=== PATIENT | male | born 1945 | race Caucasian/White ===

== ENCOUNTER 2017-06-01 02:43 | Emergency (ER) | payer OTHER ==
[~2017-06-01] VITALS: Ht 167.6 cm; Wt 64.4 kg
--- NOTE | 2017-06-01 02:54 | ER Report ---
History and Physical Time Seen By MD: 02:53 Hx. of Stated Complaint: patients nose has been bleeding off and on for about 2 hours HPI/ROS CHIEF COMPLAINT: Nosebleed HISTORY OF PRESENT ILLNESS: 71-year-old male presents ambulatory to the ER with nose bleeding for 2 hours. It's unstoppable. Patient's on Plavix and aspirin 81 mg. He's been using Flonase for recent cold symptoms. He is also taking Zyrtec which we drying his mucous membranes out. Patient has no previous history of nosebleeds. Allergies: Coded Allergies: phenytoin (Verified Allergy, Intermediate, 06/01/17) Home Meds Reported Medications Albuterol Sulfate 90 Mcg/Act (PROAIR HFA 90 MCG/ACT) 8.5 Gm Hfa.aer.ad, 1-2 PUFF IH 3-4XD, INHALER 06/01/17 Multivitamin (MULTIVITAMINS) 1 Each Capsule, 1 EACH PO, CAPSULE 06/01/17 Fish Oil/Dha/Epa (FISH OIL 1,200 MG FISH OIL) 1 Each Capsule, 1 EACH PO, CAPSULE 06/01/17 Ascorbic Acid (VITAMIN C) 500 Mg Tablet, 500 MG PO, TAB 06/01/17 Guaifenesin (MUCINEX) 1,200 Mg Tbmp.12hr, 1200 MG PO 06/01/17 Cetirizine Hcl (ZYRTEC) 10 Mg Capsule, 10 MG PO QDAY, CAPSULE 06/01/17 Cyanocobalamin (Vitamin B-12) (B-12) 1,000 Mcg Tablet 06/01/17 Esomeprazole Magnesium (NEXIUM) 40 Mg Capsule.dr, 22.3 CAP PO QDAY, CAP 06/01/17 Aspirin (ASPIR 81) 81 Mg Tablet.dr, 81 MG PO QDAY, TAB 06/01/17 Iron Polysaccharides Complex (POLYSACCHARIDE IRON 150) 150 Mg Capsule, 65 MG PO , CAPSULE 06/01/17 Tramadol Hcl (TRAMADOL HCL) 50 Mg Tablet, 50-100 MG PO Q4-6H, TAB 06/01/17 Lisinopril (LISINOPRIL) 40 Mg Tablet, 40 MG PO QDAY, TAB 06/01/17 Clopidogrel Bisulfate (CLOPIDOGREL) 75 Mg Tablet, 1 TAB PO QDAY, TAB 06/01/17 Pregabalin (LYRICA) 150 Mg Capsule, 150 MG PO BID, CAPSULE 06/01/17 Atorvastatin Calcium (LIPITOR) 40 Mg Tablet, 80 TAB PO QDAY, TAB 06/01/17 Metoprolol Tartrate (METOPROLOL TARTRATE) 25 Mg Tablet, 1 TAB PO BID, TAB 06/01/17 Metformin Hcl (METFORMIN HCL) 1,000 Mg Tablet, 1 TAB PO BID, TAB 06/01/17 Budesonide/Formoterol Fumarate (SYMBICORT 160-4.5 MCG INHALER) 10.2 Gm Inh, 10.2 GM INH, INH 06/01/17 Past Medical/Surgical History Past medical history: Asthma, hypertension, COPD, CVA, type II diabetes, chronic pain syndrome Reviewed Nurses Notes: Yes Old Medical Records Reviewed: Yes Constitutional Vital Sign - Last 24 Hours 06/01/17 06/01/17 06/01/17 06/01/17 02:46 02:47 03:13 03:36 Temp 97.5 Pulse 59 60 Resp 18 B/P (MAP) 190/77 (114) 190/77 167/65 (99) Pulse Ox 95 96 O2 Delivery Room Air 06/01/17 03:43 Pulse 53 Pulse Ox 95 Physical Exam General Appearance: The patient is alert, has no immediate need for airway protection and no current signs of toxicity., Blood pressure elevated HEENT: Pupils equal and round no injection. TMs normal, nasal passages show steve bleeding from the Kiesselbach's area in the left anterior medial area Respiratory: Chest is non tender, lungs are clear to auscultation. Cardiac: regular rate and rhythm Gastrointestinal: Abdomen is soft and non tender, no masses, bowel sounds normal. Musculoskeletal: Neck: Neck is supple and non tender. No JVD Extremities have full range of motion and are non tender. Skin: No rashes or lesions. DIFFERENTIAL DIAGNOSIS: After history and physical exam differential diagnosis was considered for nosebleed, hypertension, anticoagulation, URI, allergies, sinusitis Medical Decision Making ED Course/Re-evaluation ED Course Patient was admitted to an examination room. H&P was done. The differential diagnoses was considered. Patient was slow oozing from his left nares. On examination there is a bleeding area just posterior to Kiesselbach's area. His nasal passage was packed with a cotton ball saturated lidocaine 1% with epinephrine. The packing was removed, sober nitrate cautery was attempted to the area. Unfortunately, the bleeding continued. A rapid Rhino 4.5 cm was inserted in the left nares. It was infiltrated with lidocaine 1% with epinephrine. Patient was noted to have good hemostasis. On reevaluation and 15 minutes. He was discharged home. His blood pressure was rechecked and was notably down. Patient advised to follow-up with primary care to have the packing removed in 3 days. Decision to Disposition Date: Jun 01, 2017 Decision to Disposition Time: 03:40 Depart Departure Latest Vital Signs Vital Signs Date Time Temp Pulse Resp B/P (MAP) Pulse Ox O2 Delivery O2 Flow Rate FiO2 06/01/17 03:43 53 95 06/01/17 03:36 167/65 (99) 06/01/17 02:47 97.5 18 Room Air Impression: Primary Impression: Epistaxis Additional Impressions: Hypertension Cerebral arteriosclerosis with history of previous cerebrovascular accident Chronic anticoagulation Condition: Improved Disposition: HOME OR SELF-CARE Patient Instructions: Nosebleed (ED) Additional Instructions: Return to your primary care physician in 3 days to have the packing removed or you may come to the emergency department Problem Qualifiers Additional Impressions: Hypertension Hypertension type: essential hypertension Qualified Codes: I10 - Essential ( primary) hypertension GEO BEASLEY DO Jun 01, 2017 02:53
[2017-06-01] MEDS ORDERED: ENT KIT ONE (03:05)
[2017-06-01] MEDS ORDERED: IRON150C19 PO (03:23)
[2017-06-01] MEDS ORDERED: CLOP75TA PO (03:23)
[2017-06-01] MEDS ORDERED: METF-420 PO (03:23)
[2017-06-01] MEDS ORDERED: BUDE10.2 INH (03:23)
[2017-06-01] MEDS ORDERED: ESOM40CA42 PO (03:23)
[2017-06-01] MEDS ORDERED: CYAN100017 (03:23)
[2017-06-01] MEDS ORDERED: ALBU8.5H IH (03:23)
[2017-06-01] MEDS ORDERED: ASPI-1471 PO (03:23)
[2017-06-01] MEDS ORDERED: ASCO-182 PO (03:23)
[2017-06-01] MEDS ORDERED: LISI-374 PO (03:23)
[2017-06-01] MEDS ORDERED: GUAI1200 PO (03:23)
[2017-06-01] MEDS ORDERED: FISH1CAP15 PO (03:23)
[2017-06-01] MEDS ORDERED: ATOR40TA24 PO (03:23)
[2017-06-01] MEDS ORDERED: METO25TA93 PO (03:23)
[2017-06-01] MEDS ORDERED: TRAM-420 PO (03:23)
[2017-06-01] MEDS ORDERED: PREG150C33 PO (03:23)
[2017-06-01] MEDS ORDERED: MULT1CAP59 PO (03:23)
[2017-06-01] MEDS ORDERED: CETI10CA8 PO (03:23)
[2017-06-01 03:36] VITALS: BP 167/65
== END 2017-06-01 04:02 | disposition home or self-care (01) ==
LOC: ER 02:48
DX: R04.0 Epistaxis (principal); I10 Essential (primary) hypertension; I67.2 Cerebral atherosclerosis; Z86.73 Personal history of transient ischemic attack (TIA), and cerebral infarction without residual deficits; Z79.01 Long term (current) use of anticoagulants
CPT/HCPCS: 99282

== ENCOUNTER 2017-06-01 07:16 | Emergency (ER) | payer OTHER ==
[~2017-06-01] VITALS: Ht 167.6 cm; Wt 64.4 kg
[~2017-06-01 07:16] MED LIST: ALBU8.5H IH; ASCO-182 PO; ASPI-1471 PO; ATOR40TA24 PO; BUDE10.2 INH; CETI10CA8 PO; CLOP75TA PO; CYAN100017; ESOM40CA42 PO; FISH1CAP15 PO; GUAI1200 PO; IRON150C19 PO; LISI-374 PO; METF-420 PO; METO25TA93 PO; MULT1CAP59 PO; PREG150C33 PO; TRAM-420 PO
[2017-06-01 07:30] VITALS: BP 173/70
[2017-06-01] MEDS ORDERED: ENT KIT ONE (07:31)
--- NOTE | 2017-06-01 07:42 | ER Report ---
History and Physical Time Seen By MD: 07:30 Hx. of Stated Complaint: pt reports nose is still bleeding from last night, rhino rocket in L nare HPI/ROS CHIEF COMPLAINT: Nosebleed HISTORY OF PRESENT ILLNESS: 71-year-old male currently on Plavix and aspirin returns emergency Department hour and half after his discharge after having a nasal packing placed was still some bleeding patient returns no additional complaints noted REVIEW OF SYSTEMS: Respiratory: No cough, no dyspnea. Cardiovascular: No chest pain, no palpitations. Gastrointestinal: No vomiting, no abdominal pain. Musculoskeletal: No back pain. Remainder of the 14 system rev: Yes Allergies: Coded Allergies: phenytoin (Verified Allergy, Intermediate, 06/01/17) Home Meds Reported Medications Albuterol Sulfate 90 Mcg/Act (PROAIR HFA 90 MCG/ACT) 8.5 Gm Hfa.aer.ad, 1-2 PUFF IH 3-4XD, INHALER 06/01/17 Multivitamin (MULTIVITAMINS) 1 Each Capsule, 1 EACH PO, CAPSULE 06/01/17 Fish Oil/Dha/Epa (FISH OIL 1,200 MG FISH OIL) 1 Each Capsule, 1 EACH PO, CAPSULE 06/01/17 Ascorbic Acid (VITAMIN C) 500 Mg Tablet, 500 MG PO, TAB 06/01/17 Guaifenesin (MUCINEX) 1,200 Mg Tbmp.12hr, 1200 MG PO 06/01/17 Cetirizine Hcl (ZYRTEC) 10 Mg Capsule, 10 MG PO QDAY, CAPSULE 06/01/17 Cyanocobalamin (Vitamin B-12) (B-12) 1,000 Mcg Tablet 06/01/17 Esomeprazole Magnesium (NEXIUM) 40 Mg Capsule.dr, 22.3 CAP PO QDAY, CAP 06/01/17 Aspirin (ASPIR 81) 81 Mg Tablet.dr, 81 MG PO QDAY, TAB 06/01/17 Iron Polysaccharides Complex (POLYSACCHARIDE IRON 150) 150 Mg Capsule, 65 MG PO , CAPSULE 06/01/17 Tramadol Hcl (TRAMADOL HCL) 50 Mg Tablet, 50-100 MG PO Q4-6H, TAB 06/01/17 Lisinopril (LISINOPRIL) 40 Mg Tablet, 40 MG PO QDAY, TAB 06/01/17 Clopidogrel Bisulfate (CLOPIDOGREL) 75 Mg Tablet, 1 TAB PO QDAY, TAB 06/01/17 Pregabalin (LYRICA) 150 Mg Capsule, 150 MG PO BID, CAPSULE 06/01/17 Atorvastatin Calcium (LIPITOR) 40 Mg Tablet, 80 TAB PO QDAY, TAB 06/01/17 Metoprolol Tartrate (METOPROLOL TARTRATE) 25 Mg Tablet, 1 TAB PO BID, TAB 06/01/17 Metformin Hcl (METFORMIN HCL) 1,000 Mg Tablet, 1 TAB PO BID, TAB 06/01/17 Budesonide/Formoterol Fumarate (SYMBICORT 160-4.5 MCG INHALER) 10.2 Gm Inh, 10.2 GM INH, INH 06/01/17 Reviewed Nurses Notes: Yes Old Medical Records Reviewed: Yes Hx Substance Use Disorder: No Hx Alcohol Use: No Constitutional Vital Sign - Last 24 Hours 06/01/17 06/01/17 07:23 07:26 Temp 97.4 97.4 Pulse 63 64 Resp 14 B/P (MAP) 163/67 163/67 (99) Pulse Ox 96 93 O2 Delivery Room Air Room Air Physical Exam General appearance: Alert no distress. Respiratory: Chest is non tender, lungs are clear to auscultation. Cardiac: Regular rate and rhythm [ ] Nasal examination patient has obvious bleeding from the naris packing was removed packing was replaced successfully epistaxis resolved DIFFERENTIAL DIAGNOSIS: After history and physical exam differential diagnosis was considered for nosebleed Medical Decision Making ED Course/Re-evaluation ED Course Clinical course medical decision making 71-year-old male on Plavix and aspirin with a nosebleed removed the original packing replaced it with a full sized packing patient has received resolution of the symptoms he is currently on Plavix and aspirin advised to hold both referral to primary care for follow-up and he Decision to Disposition Date: Jun 01, 2017 Decision to Disposition Time: 07:41 Depart Departure Latest Vital Signs Vital Signs Date Time Temp Pulse Resp B/P (MAP) Pulse Ox O2 Delivery O2 Flow Rate FiO2 06/01/17 07:26 97.4 64 163/67 (99) 93 Room Air 06/01/17 07:23 14 Impression: Primary Impression: Epistaxis Condition: Improved Disposition: HOME OR SELF-CARE Referrals: WARREN NI JR, MD 2 Days Patient Instructions: Nosebleed (ED) HUONG BOCANEGRA MD Jun 01, 2017 07:42
[2017-06-01] MEDS ORDERED: PHENYLEPHRINE 0.5% 15 ML BTL ONE (09:06)
== END 2017-06-01 07:53 | disposition home or self-care (01) ==
LOC: ER 07:45
DX: R04.0 Epistaxis (principal)
CPT/HCPCS: 99282

== ENCOUNTER 2017-06-01 17:01 | Emergency (ER) | payer OTHER ==
--- NOTE | 2017-06-01 18:08 | ER Report ---
History and Physical Time Seen By MD: 17:20 Hx. of Stated Complaint: Rhino rocket falling out. HPI/ROS CHIEF COMPLAINT: Nosebleed HISTORY OF PRESENT ILLNESS: 71-year-old male patient presents to emergency room with complaint of nosebleed. Patient states he was seen here last night and again this morning for nosebleed. Patient states that he had a Rhino Rocket placed this morning. Throughout the day the Rhino Rocket has worked its way out. He had it fall out completely and came in for further evaluation. At this time there is no bleeding. He states he feels fine. He denies any nausea, vomiting or diarrhea. He has not had any changes in his medications. Allergies: Coded Allergies: phenytoin (Verified Allergy, Intermediate, 06/01/17) Home Meds Reported Medications Albuterol Sulfate 90 Mcg/Act (PROAIR HFA 90 MCG/ACT) 8.5 Gm Hfa.aer.ad, 1-2 PUFF IH 3-4XD, INHALER 06/01/17 Multivitamin (MULTIVITAMINS) 1 Each Capsule, 1 EACH PO, CAPSULE 06/01/17 Fish Oil/Dha/Epa (FISH OIL 1,200 MG FISH OIL) 1 Each Capsule, 1 EACH PO, CAPSULE 06/01/17 Ascorbic Acid (VITAMIN C) 500 Mg Tablet, 500 MG PO, TAB 06/01/17 Guaifenesin (MUCINEX) 1,200 Mg Tbmp.12hr, 1200 MG PO 06/01/17 Cetirizine Hcl (ZYRTEC) 10 Mg Capsule, 10 MG PO QDAY, CAPSULE 06/01/17 Cyanocobalamin (Vitamin B-12) (B-12) 1,000 Mcg Tablet 06/01/17 Esomeprazole Magnesium (NEXIUM) 40 Mg Capsule.dr, 22.3 CAP PO QDAY, CAP 06/01/17 Aspirin (ASPIR 81) 81 Mg Tablet.dr, 81 MG PO QDAY, TAB 06/01/17 Iron Polysaccharides Complex (POLYSACCHARIDE IRON 150) 150 Mg Capsule, 65 MG PO , CAPSULE 06/01/17 Tramadol Hcl (TRAMADOL HCL) 50 Mg Tablet, 50-100 MG PO Q4-6H, TAB 06/01/17 Lisinopril (LISINOPRIL) 40 Mg Tablet, 40 MG PO QDAY, TAB 06/01/17 Clopidogrel Bisulfate (CLOPIDOGREL) 75 Mg Tablet, 1 TAB PO QDAY, TAB 06/01/17 Pregabalin (LYRICA) 150 Mg Capsule, 150 MG PO BID, CAPSULE 06/01/17 Atorvastatin Calcium (LIPITOR) 40 Mg Tablet, 80 TAB PO QDAY, TAB 06/01/17 Metoprolol Tartrate (METOPROLOL TARTRATE) 25 Mg Tablet, 1 TAB PO BID, TAB 06/01/17 Metformin Hcl (METFORMIN HCL) 1,000 Mg Tablet, 1 TAB PO BID, TAB 06/01/17 Budesonide/Formoterol Fumarate (SYMBICORT 160-4.5 MCG INHALER) 10.2 Gm Inh, 10.2 GM INH, INH 06/01/17 Past Medical/Surgical History Patient has a past medical history of stroke, NC, hypertension, hyperlipidemia, pneumonia, COPD, prostate cancer, fractures, arthritis, type 2 diabetes, skin cancer. Patient has surgical history of open heart surgery, coronary stent, prostate surgery, orthopedic surgery. Reviewed Nurses Notes: Yes Hx Substance Use Disorder: No Hx Alcohol Use: No Constitutional Vital Sign - Last 24 Hours 06/01/17 17:10 Temp 97.9 Pulse 64 Resp 16 B/P (MAP) 157/79 Pulse Ox 93 O2 Delivery Room Air Physical Exam General appearance: Alert no distress. Respiratory: Chest is non tender, lungs are clear to auscultation. Cardiac: Regular rate and rhythm. ENT: There is no bleeding noted at this time. DIFFERENTIAL DIAGNOSIS: After history and physical exam differential diagnosis was considered for epistaxis. Medical Decision Making ED Course/Re-evaluation ED Course Patient was admitted to exam room, history of physical were obtained. Differential diagnoses were considered. On examination patient had no bleeding coming from the nose. I opted to monitor him for 30 minutes and see if there was any bleeding that started. During that time there is no bleeding noted. We will go ahead and discharge patient home. I did give the patient a nasal clamp and encouraged him to get some Afrin. If he develops any bleeding they're to instill 2 sprays of Afrin and apply nasal clamp. Patient and his verbalized understanding and agreement. Decision to Disposition Date: Jun 01, 2017 Decision to Disposition Time: 18:07 Depart Departure Latest Vital Signs Vital Signs Date Time Temp Pulse Resp B/P (MAP) Pulse Ox O2 Delivery O2 Flow Rate FiO2 06/01/17 17:10 97.9 64 16 157/79 93 Room Air Impression: Primary Impression: Epistaxis Condition: Improved Disposition: HOME OR SELF-CARE Patient Instructions: Nosebleed (ED) Additional Instructions: Get plenty of rest. Try the [place] to help moisten the nose. Increase fluid intake. If he starts bleeding use 2 sprays of Afrin and then apply nasal clamp. Follow up with your primary care provider in the next week. Return to the ER if condition worsens. MARILEE POTTER Jun 01, 2017 18:08
[2017-06-01 18:28] VITALS: BP 140/72
== END 2017-06-01 18:30 | disposition home or self-care (01) ==
LOC: ER 17:11
DX: R04.0 Epistaxis (principal)
CPT/HCPCS: 99283; 99284

== ENCOUNTER 2017-07-14 09:55 | Emergency (ER) | payer OTHER ==
[~2017-07-14] VITALS: Ht 167.6 cm; Wt 64.4 kg
--- NOTE | 2017-07-14 10:00 | ER Report ---
History and Physical Time Seen By MD: 10:00 HPI/ROS CHIEF COMPLAINT: Epistaxis HISTORY OF PRESENT ILLNESS: Left naris epistaxis onset last night patient is taking aspirin 2 mg tablets twice a day and Plavix 75 mg daily status post stents 2. No rapid bleed. Controlled with direct pressure home. Also takes medication for blood pressure which he has been compliant with. No bleeding elsewhere. No pain. No other concerns or complaints today. REVIEW OF SYSTEMS: Respiratory: No cough, no dyspnea. Cardiovascular: No chest pain, no palpitations. Gastrointestinal: No vomiting, no abdominal pain. Musculoskeletal: No back pain. Allergies: Coded Allergies: phenytoin (Verified Allergy, Intermediate, 07/14/17) Home Meds Reported Medications Clopidogrel Bisulfate (PLAVIX) 75 Mg Tablet, 1 TAB PO QDAY, TAB 07/14/17 Albuterol Sulfate 90 Mcg/Act (PROAIR HFA 90 MCG/ACT) 8.5 Gm Hfa.aer.ad, 1-2 PUFF IH 3-4XD, INHALER 06/01/17 Multivitamin (MULTIVITAMINS) 1 Each Capsule, 1 EACH PO, CAPSULE 06/01/17 Fish Oil/Dha/Epa (FISH OIL 1,200 MG FISH OIL) 1 Each Capsule, 1 EACH PO, CAPSULE 06/01/17 Ascorbic Acid (VITAMIN C) 500 Mg Tablet, 500 MG PO, TAB 06/01/17 Guaifenesin (MUCINEX) 1,200 Mg Tbmp.12hr, 1200 MG PO 06/01/17 Cetirizine Hcl (ZYRTEC) 10 Mg Capsule, 10 MG PO QDAY, CAPSULE 06/01/17 Cyanocobalamin (Vitamin B-12) (B-12) 1,000 Mcg Tablet 06/01/17 Esomeprazole Magnesium (NEXIUM) 40 Mg Capsule.dr, 22.3 CAP PO QDAY, CAP 06/01/17 Aspirin (ASPIR 81) 81 Mg Tablet.dr, 81 MG PO QDAY, TAB 06/01/17 Iron Polysaccharides Complex (POLYSACCHARIDE IRON 150) 150 Mg Capsule, 65 MG PO , CAPSULE 06/01/17 Tramadol Hcl (TRAMADOL HCL) 50 Mg Tablet, 50-100 MG PO Q4-6H, TAB 06/01/17 Lisinopril (LISINOPRIL) 40 Mg Tablet, 40 MG PO QDAY, TAB 06/01/17 Clopidogrel Bisulfate (CLOPIDOGREL) 75 Mg Tablet, 1 TAB PO QDAY, TAB 06/01/17 Pregabalin (LYRICA) 150 Mg Capsule, 150 MG PO BID, CAPSULE 06/01/17 Atorvastatin Calcium (LIPITOR) 40 Mg Tablet, 80 TAB PO QDAY, TAB 06/01/17 Metoprolol Tartrate (METOPROLOL TARTRATE) 25 Mg Tablet, 1 TAB PO BID, TAB 06/01/17 Metformin Hcl (METFORMIN HCL) 1,000 Mg Tablet, 1 TAB PO BID, TAB 06/01/17 Budesonide/Formoterol Fumarate (SYMBICORT 160-4.5 MCG INHALER) 10.2 Gm Inh, 10.2 GM INH, INH 06/01/17 Hx Substance Use Disorder: No Hx Alcohol Use: No Constitutional Vital Sign - Last 24 Hours 07/14/17 09:59 Temp 97.2 Pulse 63 Resp 14 B/P (MAP) 190/81 Pulse Ox 94 O2 Delivery Room Air Physical Exam General Appearance: The patient is alert, has no immediate need for airway protection and no current signs of toxicity. No acute distress Eyes: Pupils equal and round no injection. Nose: Bleeding from left naris only. No source identified with nasal spray exam. No source of posterior bleeding apparent. Respiratory: Chest is non tender, lungs are clear to auscultation. Cardiac: regular rate and rhythm no murmer gallop or rub Gastrointestinal: Abdomen is soft and non tender, no masses, bowel sounds normal. Musculoskeletal: Neck: Neck is supple and non tender. Extremities have full range of motion and are non tender. Skin: No rashes or lesions. No edema DIFFERENTIAL DIAGNOSIS: After history and physical exam differential diagnosis was considered for nosebleed on anti-platelet agents no signs of other coagulation disorder. No trauma. Medical Decision Making Data Points Result Diagram: 07/14/17 1027 07/14/17 1027 Laboratory Hematology Test 07/14/17 10:27 Red Blood Count 4.47 M/uL (4.00-5.60) Mean Corpuscular Volume 94.8 fL (80.0-96.0) Mean Corpuscular Hemoglobin 32.3 pg (26.0-33.0) Mean Corpuscular Hemoglobin Concent 34.1 g/dL (32.0-36.0) Red Cell Distribution Width 13.1 % (11.5-14.5) Mean Platelet Volume 9.2 fL (7.2-11.1) Neutrophils (%) (Auto) 61.4 % (39.4-72.5) Lymphocytes (%) (Auto) 21.5 % (17.6-49.6) Monocytes (%) (Auto) 8.3 % (4.1-12.4) Eosinophils (%) (Auto) 7.6 % (0.4-6.7) Basophils (%) (Auto) 1.2 % (0.3-1.4) Nucleated RBC Relative Count (auto) 0.1 /100WBC Neutrophils # (Auto) 3.8 K/uL (2.0-7.4) Lymphocytes # (Auto) 1.3 K/uL (1.3-3.6) Monocytes # (Auto) 0.5 K/uL (0.3-1.0) Eosinophils # (Auto) 0.5 K/uL (0.0-0.5) Basophils # (Auto) 0.1 K/uL (0.0-0.1) Nucleated RBC Absolute Count (auto) 0.01 K/uL Prothrombin Time 12.5 seconds (12.0-14.4) Prothromb Time International Ratio 0.93 Activated Partial Thromboplast Time 31 seconds (23-35) Sodium Level 138 mmol/L (137-145) Potassium Level 4.1 mmol/L (3.5-5.0) Chloride Level 102 mmol/L (98-107) Carbon Dioxide Level 23 mmol/L (22-30) Blood Urea Nitrogen 12 mg/dl (9-21) Creatinine 0.90 mg/dl (0.66-1.25) Glomerular Filtration Rate Calc > 60.0 Random Glucose 162 mg/dl (75-110) Calcium Level 9.0 mg/dl (8.4-10.2) Chemistry Test 07/14/17 10:27 White Blood Count 6.3 k/uL (4.5-11.0) Red Blood Count 4.47 M/uL (4.00-5.60) Hemoglobin 14.4 g/dL (14.0-18.0) Hematocrit 42.3 % (42.0-52.0) Mean Corpuscular Volume 94.8 fL (80.0-96.0) Mean Corpuscular Hemoglobin 32.3 pg (26.0-33.0) Mean Corpuscular Hemoglobin Concent 34.1 g/dL (32.0-36.0) Red Cell Distribution Width 13.1 % (11.5-14.5) Platelet Count 179 K/uL (150-450) Mean Platelet Volume 9.2 fL (7.2-11.1) Neutrophils (%) (Auto) 61.4 % (39.4-72.5) Lymphocytes (%) (Auto) 21.5 % (17.6-49.6) Monocytes (%) (Auto) 8.3 % (4.1-12.4) Eosinophils (%) (Auto) 7.6 % (0.4-6.7) Basophils (%) (Auto) 1.2 % (0.3-1.4) Nucleated RBC Relative Count (auto) 0.1 /100WBC Neutrophils # (Auto) 3.8 K/uL (2.0-7.4) Lymphocytes # (Auto) 1.3 K/uL (1.3-3.6) Monocytes # (Auto) 0.5 K/uL (0.3-1.0) Eosinophils # (Auto) 0.5 K/uL (0.0-0.5) Basophils # (Auto) 0.1 K/uL (0.0-0.1) Nucleated RBC Absolute Count (auto) 0.01 K/uL Prothrombin Time 12.5 seconds (12.0-14.4) Prothromb Time International Ratio 0.93 Activated Partial Thromboplast Time 31 seconds (23-35) Glomerular Filtration Rate Calc > 60.0 Calcium Level 9.0 mg/dl (8.4-10.2) Coagulation Test 07/14/17 10:27 Prothrombin Time 12.5 seconds Prothromb Time International Ratio 0.93 Activated Partial Thromboplast Time 31 seconds ED Course/Re-evaluation ED Course Plan of care agree upon prior to orders placed Multiple attempts at direct pressure failed Afrin failed topical tranexamanic acid failed IV tranexamanic acid held for cardiovascular history (2 stents) Consultation was made to Dr. Abernathy who recommends follow up appt tomorrow or Thursday. Pt schedule for tomorrow. Procedure: epistaxis control Indication, poorly controlled epistaxis L sided unilateral Rhino Rocket on the affected side. as per consultation recs. BP control in the ED Re-evaluation Bleeding stopped blood pressure improving nasal Rhino Rocket not well-tolerated balloon pressure double checked Decision to Disposition Date: Jul 14, 2017 Decision to Disposition Time: 13:33 Depart Departure Latest Vital Signs Vital Signs Date Time Temp Pulse Resp B/P (MAP) Pulse Ox O2 Delivery O2 Flow Rate FiO2 07/14/17 09:59 97.2 63 14 190/81 94 Room Air Impression: Primary Impression: Epistaxis Condition: Improved Disposition: HOME OR SELF-CARE Referrals: WARREN ABERNATHY JR, MD Patient Instructions: Nosebleed (ED) JENNIFER HUERTA MD Jul 14, 2017 10:00
[2017-07-14] MEDS ORDERED: CLOP75TA43 PO (10:03)
[2017-07-14] MEDS ORDERED: OXYMETAZOLINE SPRAY 15 ML BTL ONE (10:08)
[2017-07-14] MEDS ORDERED: TRANEXAMIC AC 1000 MG/10ML SDV ONE (10:40)
[2017-07-14 10:42] LABS: PLATELET COUNT, AUTOMATED 179 K/uL (150-450)
[2017-07-14 10:50] LABS: INR 0.93
[2017-07-14] MEDS ORDERED: cloNIDine HCL 0.1 MG TAB PO ONE (13:00)
[2017-07-14 13:57] VITALS: BP 126/75
== END 2017-07-14 14:09 | disposition home or self-care (01) ==
LOC: ER 10:14
DX: R04.0 Epistaxis (principal)
CPT/HCPCS: 36415; 82310; 82374; 82435; 82565; 82947; 84132; 84295; 84520; 85025; 85610; 85730; 99283